=== PATIENT | female | born 1965 | race Caucasian/White ===

== ENCOUNTER 2017-04-04 20:07 | Emergency (ER) | payer SELFPAY ==
[2017-04-04 22:08] VITALS: RESP 20; O2SAT 98
--- NOTE | 2017-04-04 22:22 | C.PDOC ---
History Of Present Illness 51F c/o watery diarrhea x6 since 3pm today. denies vomiting, abd pain, fever, recent travel or abx. she is also concerned about her BP as it is higher than usual. she did take her BP med today. Time Seen by Provider: 04/04/17 21:52 Chief Complaint (Nursing): GI Problem Past Medical History Vital Signs: Last Vital Signs Temp 98.2 F 04/04/17 23:09 Pulse 78 04/04/17 23:09 Resp 20 04/04/17 23:09 BP 167/91 H 04/04/17 23:09 Pulse Ox 98 04/04/17 23:09 - Medical History PMH: HTN Family History: States: Other Other Family History: nc - Social History Hx Tobacco Use: No Hx Alcohol Use: No Hx Substance Use: No Review Of Systems Constitutional: Negative for: Fever Cardiovascular: Negative for: Chest Pain Respiratory: Negative for: Cough, Shortness of Breath Gastrointestinal: Positive for: Diarrhea. Negative for: Nausea, Vomiting, Abdominal Pain Neurological: Negative for: Weakness, Numbness, Altered Mental Status, Headache Physical Exam - Physical Exam Appears: Well, Non-toxic, No Acute Distress Skin: Warm, Dry Head: Atraumatic Eye(s): bilateral: PERRL, EOMI Oral Mucosa: Moist Tongue: No Swelling Cardiovascular: Rhythm Regular Respiratory: No Decreased Breath Sounds, No Accessory Muscle Use Gastrointestinal/Abdominal: Soft, No Tenderness, No Distention, No Guarding, No Rebound Neurological/Psych: Oriented x3, Normal Cranial Nerves, Normal Motor, Normal Sensation, Other (no focal deficits) ED Course And Treatment O2 Sat by Pulse Oximetry: 98 Disposition - Disposition Referrals: Nette Salazar MD [Medical Doctor] - Disposition: HOME/ ROUTINE Disposition Time: 23:27 Condition: GOOD Additional Instructions: Please follow up with your doctor tomorrow. Return to the ER for any worsening symptoms, fever, severe abdominal pain, repeated vomiting, or for any other concerns. Instructions: Acute Diarrhea (ED) Forms: General Discharge Instructions - Clinical Impression Clinical Impression: Diarrhea
[2017-04-04 23:10] VITALS: BP 167/91; PULSE 78; TEMP 98.2
== END 2017-04-04 23:49 | disposition home or self-care (01) ==
LOC: C.ER 20:07
DX: R19.7 Diarrhea, unspecified (principal); I10 Essential (primary) hypertension

== ENCOUNTER 2017-06-27 06:04 | Emergency (ER) | payer SELFPAY ==
[2017-06-27 06:24] VITALS: RESP 20; O2SAT 100
[2017-06-27 08:17] VITALS: BP 151/88; PULSE 87; TEMP 97.7
--- NOTE | 2017-06-27 08:17 | C.PDOC ---
History Of Present Illness 51 y/o female presents to emergency department with complaint of elevated blood pressure since last night. Patient states she ate a lot of fried, greasy foods yesterday while at a [employer]. She also admits to headache yesterday, which has improved and is mild today. She states that she takes amlodipine 10mg daily, notes she took it trwice yesterday (in am and then again at night). Patient also had some diarrhea, took immodium. She denies chest pain, SOB, palpitations, visual changes, dizziness, facial droop, slurred speech, extremity weakness, sensory changes, gait changes. Time Seen by Provider: 06/27/17 07:14 Chief Complaint (Nursing): High Blood Pressure History Per: Patient History/Exam Limitations: no limitations Onset/Duration Of Symptoms: Days Current Symptoms Are (Timing): Better Associated Symptoms: Headache. denies: Chest Pain, Dyspnea, Dizziness Severity: Mild Exacerbating Factor(s): Pos: Increased Salt/Salty Foods Past Medical History Reviewed: Historical Data, Nursing Documentation, Vital Signs Vital Signs: Last Vital Signs Temp 97.7 F 06/27/17 08:17 Pulse 87 06/27/17 08:17 Resp 20 06/27/17 08:17 BP 151/88 H 06/27/17 08:17 Pulse Ox 100 06/27/17 10:47 - Medical History PMH: HTN Family History: States: No Known Family Hx - Social History Hx Tobacco Use: No Hx Alcohol Use: No Hx Substance Use: No - Immunization History Hx Tetanus Toxoid Vaccination: No Hx Influenza Vaccination: No Review Of Systems Except As Marked, All Systems Reviewed And Found Negative. Constitutional: Negative for: Fever, Chills Cardiovascular: Negative for: Chest Pain, Palpitations Respiratory: Negative for: Shortness of Breath Gastrointestinal: Positive for: Diarrhea (resolved). Negative for: Nausea, Vomiting, Abdominal Pain Skin: Negative for: Rash Neurological: Positive for: Headache. Negative for: Weakness, Numbness, Confusion, Seizures, Altered Mental Status, Dizziness Physical Exam - Physical Exam Appears: Well, Non-toxic, No Acute Distress Skin: Normal Color, Warm, Dry Head: Atraumatic, Normacephalic Eye(s): bilateral: Normal Inspection, PERRL, EOMI Oral Mucosa: Moist Neck: Supple Cardiovascular: Rhythm Regular Respiratory: Normal Breath Sounds, No Rales, No Rhonchi, No Wheezing Gastrointestinal/Abdominal: Normal Exam, Bowel Sounds, Soft, No Tenderness Back: Normal Inspection Extremity: Bilateral: Atraumatic, Normal Color And Temperature, Normal ROM Neurological/Psych: Oriented x3, Normal Speech, Normal Cognition Gait: Steady ED Course And Treatment ECG: Interpreted By Me, Viewed By Me (NSR 92 bpm, normal axis, no acute ST/T wave changes - unchanged from EKG 07/01/13) ECG Rhythm: Sinus Rhythm ECG Interpretation: No Acute Changes Rate From EC (BPM) O2 Sat by Pulse Oximetry: 100 (RA) Pulse Ox Interpretation: Normal Progress Note: Tylenol PO ordered, which patient then refused. EKG ordered and reviewed - unremarkable and unchanged from prior. Patient's BP improved without intervention, and when reassessed, she is well appearing, aymptomatic and comfortable being discharged home. She was instructed to follow up with her PMD/clinic in 1-2 days, and understands she should return to ED if symptoms worsen. Disposition Counseled Patient/Family Regarding: Studies Performed, Diagnosis, Need For Followup - Disposition Referrals: Nette Salazar MD [Medical Doctor] - Disposition: HOME/ ROUTINE Disposition Time: 08:15 Condition: GOOD Additional Instructions: FOLLOW UP WITH YOUR DOCTOR IN 1-2 DAYS TAKE YOUR BLOOD PRESSURE MEDICATION DAILY AVOID SALTY, FRIED, GREASY FOODS RETURN TO ER IF SYMPTOMS WORSEN Instructions: Hypertension (ED) Forms: [facility] (Telugu), General Discharge Instructions - POA Present On Arrival: None - Clinical Impression Clinical Impression: Hypertension, Dietary indiscretion - Scribe Statement The provider has reviewed the documentation as recorded by the Paula Rodgers All medical record entries made by the Yusraibdakota were at my direction and personally dictated by me. I have reviewed the chart and agree that the record accurately reflects my personal performance of the history, physical exam, medical decision making, and the department course for this patient. I have also personally directed, reviewed, and agree with the discharge instructions and disposition.
--- NOTE | 2017-06-29 12:03 | CARD ---
APPROVED REPORT EKG Measurement Heart [id number] <Conclusion> Normal sinus rhythm Nonspecific ST and T wave abnormality Abnormal ECG
== END 2017-06-27 08:22 | disposition home or self-care (01) ==
LOC: C.ER 06:04
DX: I10 Essential (primary) hypertension (principal)